=== PATIENT | male | born 1965 | race Caucasian/White ===

== ENCOUNTER 2024-04-12 09:39 | Emergency (ER) | payer OTHER ==
[2024-04-12] MEDS ORDERED: XYLOCAINE 1% HCL 20 ML MDV ONE (09:47)
[2024-04-12 09:52] VITALS: PULSE 63; RESP 20; TEMP 98.8; O2SAT 95
[2024-04-12] MEDS: XYLOCAINE 1% HCL 20 ML MDV IJ ONE (09:56)
--- NOTE | 2024-04-12 10:10 | ERPHSYRPT ---
- History of Present Illness Time Seen by Provider: 04/12/24 09:40 Source: patient Exam Limitations: no limitations Patient Subjective Stated Complaint: Pt sates "I wsa fixing a garage door and a piece of metal hit my right hand and cut it." Triage Nursing Assessment: Pt presented alert and oriented x 3, skin pwd. Pt has a laceration noted to first knuckle of index finger on his right hand approx 3cm x 0.4 cm Physician History: Patient was replacing the garage door when the metal part of the edge of the door came down and cut the top of his right hand. It split open and started bleeding, did improve with direct pressure, but he noticed that he gave any time tried to move his hand, and still had some bleeding so he came to emergency room for further evaluation. Patient's wound is worse with any type of movement. The injury occurred 10 minutes prior to coming into the emergency department. Patient is up-to-date on his tetanus his last tetanus shot was 1 year ago. Patient denies any pain to his hand as there is no crush injury he states only the metal edge cut the top of his hand over top of his index finger knuckle only with no other wounds anywhere else. Patient has not been evaluated treated by 1 prior to coming into the emergency department. Occurred: just prior to arrival Method of Injury: incised (Metal edge of a garage) Quality: constant Severity of Pain-Max: mild Severity of Pain-Current: none Extremities Pain Location: hand: right Modifying Factors: Worsens With: movement Associated Symptoms: No back pain, No chills, No chest discomfort, No chest pain, No dyspnea, No fever, No jaw pain, No nausea, No sweating, No short of breath, No vomiting Allergies/Adverse Reactions: No Known Drug Allergies Allergy (Verified 04/12/24 09:52) Home Medications: No Reportable Medications [No Reported Medications] 04/12/24 [History] Hx Tetanus, Diphtheria Vaccination/Date Given: Yes Hx Influenza Vaccination/Date Given: No Hx Pneumococcal Vaccination/Date Given: No Immunizations Up to Date: No Travel Risk - International Travel Have you traveled outside of the country in past 3 weeks: No - Emerging Infectious Disease Are you exhibiting symptoms associated with any current EIDs: No - Review of Systems Constitutional: No Fever, No Chills Eyes: No Symptoms, No Eye Pain, No Vision Changes Ears, Nose, & Throat: No Symptoms, No Nose Congestion, No Nose Discharge, No Epistaxis, No Loose Teeth Respiratory: No Cough, No Dyspnea Cardiac: No Chest Pain, No Edema, No Syncope Abdominal/Gastrointestinal: No Abdominal Pain, No Nausea, No Vomiting, No Diarrhea Genitourinary Symptoms: No Flank Pain Musculoskeletal: No Back Pain, No Neck Pain Skin: No Rash Neurological: No Dizziness, No Focal Weakness, No Sensory Changes Psychological: No Symptoms, No Anxiety Endocrine: No Symptoms Hematologic/Lymphatic: No Easy Bleeding, No Easy Bruising All Other Systems: Reviewed and Negative - Past Medical History Pertinent Past Medical History: No - Past Surgical History Past Surgical History: No - Social History Smoking Status: Never smoker Exposure to second hand smoke: No Drug Use: none - Social Determinants of Health Will the patient participate in the screening: Declined to provide - Nursing Vital Signs Nursing Vital Signs: Initial Vital Signs Temperature 98.8 F 04/12/24 09:46 Pulse Rate 63 04/12/24 09:46 Respiratory Rate 20 04/12/24 09:46 Blood Pressure 172/114 04/12/24 09:46 O2 Sat by Pulse Oximetry 95 04/12/24 09:46 Pain Scale Pain Intensity 4 - Physical Exam General Appearance: alert Eyes, Ears, Nose, Throat Exam: moist mucous membranes Neck Exam: non-tender, supple Cardiovascular/Respiratory Exam: chest non-tender, normal breath sounds, regular rate/rhythm, no respiratory distress Abdominal Exam: non-tender, soft, No guarding, No tenderness Back Exam: normal inspection, No CVA tenderness, No vertebral tenderness Shoulder Exam: normal inspection, non-tender, no evidence of injury, normal ROM, No bone tenderness, No pain Elbow/Forearm Exam: normal inspection, non-tender, no evidence of injury, normal ROM, No bone tenderness, No soft tissue tenderness Wrist Exam: normal inspection, non-tender, no evidence of injury, normal ROM, bone tenderness, No ecchymosis, No pain, No soft tissue tenderness Hand Exam: non-tender, normal ROM, laceration (Single, 3 cm subcutaneous laceration over the dorsum of the distal second metacarpal on the right hand only; no contamination; no underlying involvement of osseous, vascular, nerve or tendinous structures; positive active bleeding), No bone tenderness Neuro/Tendon Exam: normal sensation, normal motor functions Mental Status Exam: alert, oriented x 3, cooperative Skin Exam: normal color, warm, dry, laceration (1 single laceration on dorsum of the right hand), No jaundice SpO2 Interpretation: normal SpO2: 95 O2 Delivery: Room Air Procedures - Laceration/Wound Repair Right Volar Hand Time of Procedure: 09:50 Wound Location: Right, hand Wound Length (cm): 3 Wound's Depth, Shape: superficial, linear Wound Explored: in bloodless field Irrigated: Yes Hibiclens Prep: Yes Anesthesia: local, 1% Lidocaine Volume Anesthetic (ccs): 6 Wound Repaired With: sutures Suture Size/Type: 3-0 Number of Sutures: 5 Layer Closure?: No Sterile Dressing Applied?: Yes Splint Applied?: No Sling Applied?: No - Course Nursing assessment & vital signs reviewed: Yes Ordered Tests: Active Orders 24 hr Category Date Time Status Wound Care STAT Care 04/12/24 10:10 Active Medication Summary Discontinued Medications Generic Name Dose Route Start Last Admin Trade Name Lauriq PRN Reason Stop Dose Admin Lidocaine HCl 10 ml 04/12/24 09:46 04/12/24 09:56 Lidocaine Hcl 1% 20 Ml Mdv 20 Ml Ml IJ 04/12/24 09:47 10 ml STAT ONE Administration Lidocaine HCl Confirm 04/12/24 09:47 Lidocaine Hcl 1% 20 Ml Mdv 20 Ml Ml Administered 04/12/24 09:48 Dose 1 ml .ROUTE .STK-MED ONE - Progress Progress: improved, re-examined Progress Note: 04/12/24 10:08 Patient has no further bleeding, has no opening or gaping of the wound of any type with flexion and extension at the MCP joint Counseled pt/family regarding: diagnosis, need for follow-up Medical Desision Making - Risk of complications Minimal Risk: Minimal risk of morbidity - Departure Departure Disposition: Home Clinical Impression: Elevated blood pressure reading without diagnosis of hypertension Laceration of right hand Qualifiers: Encounter type: initial encounter Foreign body presence: without foreign body Qualified Code(s): S61.411A - Laceration without foreign body of right hand, initial encounter Condition: Good Critical Care Time: No Instructions: Laceration Repair With Stitches (DC), DASH diet Additional Instructions: You have [address] that need replaced in 10 days. Return back to the nearest emergency room and if you have any signs of redness, swelling or pain to your right hand, any loss of strength, function or range of motion to the right hand or fingers, any swelling to your finger, any new fever, or any other concerning signs or symptoms that were not present at today's emergency room visit for immediate reevaluation in the nearest emergency department
[2024-04-12 10:14] VITALS: BP 183/114
== END 2024-04-12 10:18 | disposition home or self-care (01) ==
LOC: ED 09:39
DX: S61.411A Laceration without foreign body of right hand, initial encounter (principal); W45.8XXA Other foreign body or object entering through skin, initial encounter; W26.8XXA Contact with other sharp object(s), not elsewhere classified, initial encounter; R03.0 Elevated blood-pressure reading, without diagnosis of hypertension
CPT/HCPCS: 12002; 96372; 99283